=== PATIENT | female | born 1965 | race Caucasian/White ===

== ENCOUNTER 2017-07-06 14:03 | Emergency (ER) | payer OTHER ==
[~2017-07-06] VITALS: Ht 160 cm; Wt 61.7 kg
[~2017-07-06 14:03] MED LIST: FENTANYL PA50 MCG/HR; OS-CAL 500+D C1 EACH PO; OXYCODONE HCL15 MG PO
[2017-07-06] MEDS ORDERED: MS CONTIN15 MG PO (14:22)
[2017-07-06 16:24] LABS: ABSOLUTE EOSINOPHILS 0.1 thou/uL (0.0-0.7); ABSOLUTE LYMPHOCYTES 2.4 thou/uL (0.8-5.3); ABSOLUTE MONOCYTES 0.5 thou/uL (0.0-1.2); ABSOLUTE NEUTROPHILS 4.4 thou/uL (1.6-8.1); BASOPHILS 0.6 %; EOSINOPHILS 1.4 %; HEMATOCRIT 39.7 % (37.0-47.0); HEMOGLOBIN 13.5 gm/dL (12.0-15.0); LYMPHOCYTES 31.8 %; MCH 33.6 pg (26.0-34.0); MCV 98.7 fL (80.0-100.0); MONOCYTES 6.9 %; MPV 9.5 fl. (7.2-11.1); NUCLEATED RBCS 0 /100WBC; PLATELET COUNT* 232 thou/uL (150-400); POLYS 59.3 %; RBC 4.03 mil/uL (4.20-5.00); RDW-CV 12.6 % (10.5-14.5); WBC 7.4 thou/uL (4.0-11.0)
[2017-07-06 16:28] LABS: CALCIUM 8.7 mg/dL (8.5-10.1); CREATININE 0.7 mg/dL (0.6-1.3); POTASSIUM 3.6 mmol/L (3.5-5.1)
[2017-07-06 16:33] LABS: ALBUMIN 3.7 g/dL (3.4-5.0); TOTAL BILIRUBIN 0.2 mg/dL (<0.1-1.0); TOTAL PROTEIN 7.2 g/dL (6.4-8.2)
[2017-07-06 18:05] VITALS: BP 123/74
== END 2017-07-06 18:36 | disposition short-term general hospital (02) ==
LOC: M.ERS 14:03
PROVIDERS: Nurse Practitioner
DX: R51 Headache (principal); G93.9 Disorder of brain, unspecified; R53.83 Other fatigue; M19.90 Unspecified osteoarthritis, unspecified site

== ENCOUNTER → 2019-04-16 | Outpatient (CLI) | payer OTHER ==
[~2019-04-16] MED LIST changes: +MS CONTIN15 MG PO
== END ==
LOC: M.RAD 16:44
DX: Z12.31 Encounter for screening mammogram for malignant neoplasm of breast (principal)

== ENCOUNTER 2019-08-25 00:56 | Emergency (ER) | payer OTHER ==
[~2019-08-25] VITALS: Ht 160 cm; Wt 58.5 kg
[2019-08-25] MEDS ORDERED: OXYCODONE HCL10 MG PO (01:14)
[2019-08-25 02:01] VITALS: BP 144/66
== END 2019-08-25 02:01 | disposition home or self-care (01) ==
LOC: M.ERS 00:56
DX: S92.351A Displaced fracture of fifth metatarsal bone, right foot, initial encounter for closed fracture (principal); M19.90 Unspecified osteoarthritis, unspecified site; Z98.890 Other specified postprocedural states; Z90.49 Acquired absence of other specified parts of digestive tract; W01.0XXA Fall on same level from slipping, tripping and stumbling without subsequent striking against object, initial encounter; Y93.89 Activity, other specified; Y92.89 Other specified places as the place of occurrence of the external cause; Y99.8 Other external cause status